=== PATIENT | female | born 1970 | race Caucasian/White ===

== ENCOUNTER 2016-09-18 15:47 | Inpatient (IN) | payer OTHER ==
[2016-09-18 18:17] LABS: Basophils % (Auto) 1.2 % (0.0-1.8); Eosinophils % (Auto) 1.9 % (0.0-4.3); Hematocrit 29.7 % (30.3-42.9); Hemoglobin 9.6 gm/dl (10.1-14.3); Mean Corpuscular HGB Conc 33 % (30-34); Mean Corpuscular Hemoglobin 27 pg (28-32); Mean Corpuscular Volume 84 fl (79-97); Platelet Count 262 K/mm3 (140-440); Red Blood Count 3.54 M/mm3 (3.65-5.03); Red Cell Distribution Width 15.8 % (13.2-15.2); White Blood Count 5.1 K/mm3 (4.5-11.0)
[2016-09-18 18:32] LABS: Anion Gap 20 mmol/L; Blood Urea Nitrogen 15 mg/dL (7-17); Calcium 8.8 mg/dL (8.4-10.2); Carbon Dioxide 21 mmol/L (22-30); Chloride 105.5 mmol/L (98-107); Glucose 98 mg/dL (65-100); Potassium 4.3 mmol/L (3.6-5.0); Sodium 142 mmol/L (137-145)
--- NOTE | 2016-09-18 18:53 | Cat Scan Report ---
FINAL REPORT EXAM: CT HEAD/BRAIN WO CON HISTORY: syncope TECHNIQUE: CT head without contrast PRIORS: None. FINDINGS: No acute intra-axial or extra-axial hemorrhage is identified. There is no evidence of midline shift or mass effect. The ventricles and sulci are within normal limits. Ghosh-white matter differentiation is intact. No acute parenchymal abnormalities seen. Bony calvarium is grossly intact. There is marked mucosal thickening within the right maxillary sinus. There is fluid level present within the left maxillary sinus. IMPRESSION: Sinusitis likely acute on chronic No acute intracranial findings.
--- NOTE | 2016-09-18 18:54 | XRay Report ---
FINAL REPORT EXAM: XR SHOULDER 2+V RT HISTORY: rt shoulder injury TECHNIQUE: Three views right shoulder PRIORS: None. FINDINGS: No fractures are identified. No dislocation seen. The acromioclavicular joint is intact. Adjacent bony and soft tissue structures are unremarkable. IMPRESSION: Negative shoulder series
[2016-09-18 21:10] LABS: Bilirubin,Urine NEG (Negative); Blood,Urine NEG (Negative); Ketones,Urine TR mg/dL (Negative); Leukocyte Esterase,Urine SM (Negative); Mucus,Urine FEW /HPF; Nitrite,Urine NEG (Negative); Urobilinogen,Urine < 2.0 mg/dL (<2.0)
[2016-09-19] MEDS ORDERED: ZOFRAN IV ONE (02:22)
[2016-09-19] MEDS ORDERED: MORPHINE IV ONE (02:22)
[2016-09-19] MEDS ORDERED: NITRO-BID 2% TP ONE (02:25)
[2016-09-19] MEDS ORDERED: ASPIRIN PO ONE (02:25)
--- NOTE | 2016-09-19 02:47 | Emergency Department Report ---
HPI - General Chief Complaint: Syncope Time Seen by Provider: 09/19/16 02:09 - [facility] HPI: Room 18 The patient is a 46-year-old female presenting with a chief complaint of chest pain and syncope. The patient states approximately 3 days ago while standing she had a syncopal episode. Patient states when she came to she felt slightly dizzy. She denied preceding palpitations or shortness of breath before the syncopal episode. Patient believes she injured her right shoulder after the fall. The patient admits last week she had intermittent substernal chest pain for 5 days. Patient states she still has chest pain that is described as sharp and substernal in nature. Patient does admit to occasional diaphoresis with the chest pain but denies nausea/vomiting or shortness of breath. Patient denies any recent flights or long car trips. Patient gives her shoulder pain a score of 6-8/10 and her chest pain currently a score of 4/10. The patient states she's never had a stress test or cardiac catheterization Location: [see above] Duration: [see above] Quality: Sharp Severity: [see above] Modifying factors: [see above] Context: [see above] Mode of transportation: [not driving] ED Past Medical Hx - Past Medical History Previous Medical History?: Yes Hx Headaches / Migraines: Yes Hx Seizures: Yes - Surgical History Past Surgical History?: No - Family History Family history: no significant - Social History Smoking Status: Never Smoker Substance Use Type: None ED Review of Systems ROS: Stated complaint: RT ARM PAIN Other details as noted in HPI Comment: All other systems reviewed and negative Constitutional: diaphoresis. denies: chills, fever Eyes: denies: eye pain, eye discharge, vision change ENT: denies: ear pain, throat pain Respiratory: denies: cough, shortness of breath, wheezing Cardiovascular: chest pain. denies: palpitations Endocrine: no symptoms reported Gastrointestinal: denies: abdominal pain, nausea, diarrhea Genitourinary: denies: urgency, dysuria, discharge Musculoskeletal: myalgia Skin: denies: rash, lesions Neurological: other (syncope) Psychiatric: denies: anxiety, depression Hematological/Lymphatic: denies: easy bleeding, easy bruising Physical Exam - Physical Exam Vital Signs: Vital Signs 09/18/16 17:18 Temperature 98.2 F Pulse Rate 87 Respiratory 16 Rate Blood Pressure 115/79 O2 Sat by Pulse 100 Oximetry Physical Exam: GENERAL: The patient is well-developed well-nourished female lying on stretcher not appearing to be in acute distress. [] HEENT: Normocephalic. Atraumatic. Extraocular motions are intact. Patient has moist mucous membranes. NECK: Supple. Trachea midline CHEST/LUNGS: Clear to auscultation. There is no respiratory distress noted. HEART/CARDIOVASCULAR: Regular. There is no tachycardia. There is no gallop rub or murmur. ABDOMEN: Abdomen is soft, nontender. Patient has normal bowel sounds. There is no abdominal distention. SKIN: There is no rash. There is no edema. There is no diaphoresis. NEURO: The patient is awake, alert, and oriented. The patient is cooperative. The patient has no focal neurologic deficits. The patient has normal speech. Cranial nerves II through XII grossly intact MUSCULOSKELETAL: There is tenderness to palpation of the right shoulder. There is decreased range of motion of the right shoulder secondary to pain. There is no obvious deformity of the right shoulder ED Course Vital Signs 09/18/16 17:18 Temperature 98.2 F Pulse Rate 87 Respiratory 16 Rate Blood Pressure 115/79 O2 Sat by Pulse 100 Oximetry ED Medical Decision Making - Lab Data Result diagrams: 09/18/16 17:59 09/18/16 17:59 Laboratory Tests 09/18/16 09/18/16 09/18/16 17:59 17:59 20:09 WBC 5.1 RBC 3.54 L Hgb 9.6 L Hct 29.7 L MCV 84 MCH 27 L MCHC 33 RDW 15.8 H Plt Count 262 Lymph % (Auto) 30.7 Ross % (Auto) 10.4 H Eos % (Auto) 1.9 Baso % (Auto) 1.2 Lymph # 1.6 Ross # 0.5 Eos # 0.1 Baso # 0.1 Seg Neutrophils % 55.8 Seg Neutrophils # 2.9 D-Dimer Sodium 142 Potassium 4.3 Chloride 105.5 Carbon Dioxide 21 L Anion Gap 20 BUN 15 Creatinine 0.6 L Estimated GFR > 60 BUN/Creatinine Ratio 25.00 Glucose 98 Calcium 8.8 Troponin T < 0.010 < 0.010 Urine Color Urine Turbidity Urine pH Ur Specific [place] Urine Protein Urine Glucose (UA) Urine Ketones Urine Blood Urine Nitrite Urine Bilirubin Urine Urobilinogen Ur Leukocyte Esterase Urine WBC (Auto) Urine RBC (Auto) U Epithel Cells (Auto) Amorphous Crystals Urine Mucus 09/18/16 09/18/16 09/19/16 20:15 23:30 02:51 WBC RBC Hgb Hct MCV MCH MCHC RDW Plt Count Lymph % (Auto) Ross % (Auto) Eos % (Auto) Baso % (Auto) Lymph # Ross # Eos # Baso # Seg Neutrophils % Seg Neutrophils # D-Dimer 172.88 Sodium Potassium Chloride Carbon Dioxide Anion Gap BUN Creatinine Estimated GFR BUN/Creatinine Ratio Glucose Calcium Troponin T < 0.010 Urine Color Yellow Urine Turbidity Cloudy Urine pH 6.0 Ur Specific [place] 1.029 Urine Protein 30 mg/dl Urine Glucose (UA) Neg Urine Ketones Tr Urine Blood Neg Urine Nitrite Neg Urine Bilirubin Neg Urine Urobilinogen < 2.0 Ur Leukocyte Esterase Sm Urine WBC (Auto) 12.0 H Urine RBC (Auto) 3.0 U Epithel Cells (Auto) 2.0 Amorphous Crystals 1+ Urine Mucus Few - EKG Data -: EKG Interpreted by Me EKG shows normal: sinus rhythm Rate: normal - EKG Data When compared to previous EKG there are: previous EKG unavailable Interpretation: other (no ischemic changes seen) - Radiology Data Radiology results: report reviewed (CT head), image reviewed (CT head, right shoulder x-ray, chest x-ray) interpreted by me: Right shoulder x-ray-no acute fracture Chest x-ray-no focal infiltrates, no pneumothorax CT head (read by radiologist)-no acute intracranial findings - Differential Diagnosis ACS, PE, syncope, clavicle fracture, AC separation Critical care attestation.: If time is entered above; I have spent that time in minutes in the direct care of this critically ill patient, excluding procedure time. ED Disposition Clinical Impression: Chest pain, Syncope Disposition: -09 OP ADMIT IP TO THIS HOSP Is pt being admited?: Yes Does the pt Need Aspirin: Yes Condition: Fair Instructions: Chest Pain (ED), Syncope (ED) Referrals: PRIMARY CARE, [Primary Care Provider] - 3-5 Days Time of Disposition: 03:22 (hospitalist notified)
[2016-09-19] MEDS ORDERED: TYLENOL PO PRN (04:04)
[2016-09-19] MEDS ORDERED: MORPHINE IV PRN (04:04)
[2016-09-19] MEDS ORDERED: MILK OF MAGNESIA PO PRN (04:04)
[2016-09-19] MEDS ORDERED: DULCOLAX PR PRN (04:04)
[2016-09-19] MEDS ORDERED: ZOFRAN IV PRN (04:04)
--- NOTE | 2016-09-19 04:04 | History and Physical Report ---
History of Present Illness Date of examination: 09/19/16 History of present illness: 46-year-old woman history of seizure comes emergency room with complaints of chest pain in the epigastric area which she describes as a sharp pain, started last week, constant, intensity 5/10, no radiation, she cannot identify exacerbating or relieving factors. Complaining of right shoulder pain, had a syncopal episode, no nausea vomiting, shortness breath, diaphoresis or palpitation Review of systems Constitutional: no fever, no chills, no weight loss Ears, eyes, nose, mouth and throat: no nasal congestion, no nasal discharge, no sinus pressure, no vision change, no red eye. Neck: No neck pain or rigidity. Cardiovascular: no orthopnea, no palpitations, no leg swelling Respiratory: No shortness of breath, no cough, no congestion, no wheezing Gastrointestinal: abdominal pain, hematochezia, no nausea, no vomiting Genitourinary : no dysuria, frequency , no hematuria Musculoskeletal: no joint swelling or muscle ache Integumentary: no rash, no pruritis Neurological: no parathesias, no numbness, no focal weakness Endocrine: no cold or heat intolerance, no polyuria or polydipsia Hematologic/Lymphatic: no easy bruising, no easy bleeding, no gland swelling Allergic/Immunologic: no urticaria, no angioedema. PAST MEDICAL HISTORY: Seizure PAST SURGICAL HISTORY: None FAMILY HISTORY: Hypertension SOCIAL HISTORY:Denies alcohol, tobacco, drugs Medications and Allergies Allergies Allergy/AdvReac Type Severity Reaction Status Date / Time No Known Allergies Allergy Verified 09/18/16 17:18 Exam - Physical Exam Narrative exam: Gen. appearance: Patient lying in bed, no apparent distress HEENT: Normocephalic, atraumatic, pupils equally round and reactive to light, extraocular movement intact, and no sclericterus,. No JVD or thyromegaly or nodule,neck supple, no carotid bruit ,mucous membranes moist, no exudate or erythema Heart: S1, S2, regular rate and rhythm Lungs: Clear to auscultation bilaterally, breathing comfortable Abdomen: Positive bowel sounds, nontender, nondistended, no organomegaly Extremity: No edema, cyanosis, clubbing Skin: No rash, nodules, warm, dry Neuro: Oriented 3, cranial nerves II-12 intact, speech is fluent, motor and sensory intact - Constitutional Vitals: Temp Pulse Resp BP Pulse Ox 98.2 F 80 16 105/62 99 09/18/16 17:18 09/19/16 02:25 09/19/16 02:25 09/19/16 02:25 09/19/16 02:25 Results - Labs CBC & Chem 7: 09/18/16 17:59 09/18/16 17:59 Labs: Abnormal lab results 09/18/16 09/18/16 09/18/16 Range/Units 17:59 17:59 20:15 RBC 3.54 L (3.65-5.03) M/mm3 Hgb 9.6 L (10.1-14.3) gm/dl Hct 29.7 L (30.3-42.9) % MCH 27 L (28-32) pg RDW 15.8 H (13.2-15.2) % [place] % (Auto) 10.4 H (0.0-7.3) % Carbon Dioxide 21 L (22-30) mmol/L Creatinine 0.6 L (0.7-1.2) mg/dL Urine WBC (Auto) 12.0 H (0.0-6.0) /HPF - Imaging and Cardiology EKG: image reviewed Chest x-ray: image reviewed Assessment and Plan Assessment Chest pain, rule out ACS Seizure Plan Admit to medicine Check cardiac enzymes, stress tests, lipid profile Start aspirin, morphine Continue appropriate outpatient medication, start DVT prophylaxis
[2016-09-19 06:14] LABS: Creatine Kinase 136 units/L (30-135)
[2016-09-19 09:40] LABS: Creatine Kinase 126 units/L (30-135)
--- NOTE | 2016-09-19 09:54 | XRay Report ---
AP CHEST: HISTORY: chest pain AP view of the chest demonstrates a normal mediastinal and cardiac contour with clear lungs and normal bony and soft tissue structures. IMPRESSION: Unremarkable AP chest.
[2016-09-19] MEDS ORDERED: ASPIRIN PO SCH (10:00)
[2016-09-19] MEDS ORDERED: LOVENOX SUB-Q SCH (10:00)
[2016-09-19 13:26] VITALS: BP 96/53
--- NOTE | 2016-09-19 15:36 | Discharge Summary ---
Providers - Providers Date of Admission: 09/19/16 04:04 Date of discharge: 09/19/16 Attending physician: INDIRA CLARK Primary care physician: KRISTY SAVAGE MD Hospitalization Condition: Fair Procedures: TST Negative Hospital course: See Dis summary in reports Disposition: DC-Shawn TO HOME OR SELFCARE Time spent for discharge: 20 minutes Core Measure Documentation - Palliative Care Palliative Care/ Comfort Measures: Not Applicable - Core Measures Any of the following diagnoses?: none Exam - Constitutional Vitals: Temp Pulse Resp BP Pulse Ox 97.7 F 87 18 96/53 98 09/19/16 13:24 09/19/16 13:24 09/19/16 13:24 09/19/16 13:24 09/19/16 13:24 General appearance: Present: no acute distress, well-nourished - EENT Eyes: Present: PERRL ENT: hearing intact, clear oral mucosa - Neck Neck: Present: supple, normal ROM - Respiratory Respiratory effort: normal Respiratory: bilateral: CTA - Cardiovascular Heart Sounds: Present: S1 & S2. Absent: rub, click - Extremities Extremities: pulses symmetrical, No edema Peripheral Pulses: within normal limits - Abdominal General gastrointestinal: Present: soft, non-tender, non-distended, normal bowel sounds Female genitourinary: Present: normal - Integumentary Integumentary: Present: clear, warm, dry - Musculoskeletal Musculoskeletal: gait normal, strength equal bilaterally - Psychiatric Psychiatric: appropriate mood/affect, intact judgment & insight - Neurologic Neurologic: CNII-XII intact, moves all extremities Plan Activity: no restrictions Diet: regular Follow up with: PRIMARY CAREMD [Primary Care Provider] - 3-5 Days
--- NOTE | 2016-09-20 02:10 | Discharge Summary ---
HOSPITAL COURSE: The patient is a 46-year-old female admitted with chest pain in retrosternal and epigastric region. Also, has a history of seizures. Intensity was 5/10. Also, complaining of right shoulder pain and syncopal episode. No nausea, no vomiting, no shortness of breath, no diaphoresis. PAST MEDICAL HISTORY: Significant for seizures. CURRENT MEDICATIONS: No seizure medications. HOSPITAL COURSE: The patient's EKG was normal sinus rhythm, heart rate of 70 per minute, normal sinus rhythm, no acute ischemic changes. CT head was negative. The right shoulder and chest x-ray was normal. No acute changes. The patient was admitted for chest pain and syncope. Cardiac enzymes were negative. Four troponins and all were negative. Two CK-MBs and CKs were also negative. Urine showed white blood cells of 12. Her blood pressure was normal, 96/53 and 99/60. There was tenderness in the right shoulder. The patient had an exercise stress test on the morning of 09/19/2016, which was negative. No ischemic changes on exercise. Tolerated the stress test well. DISCHARGE DIAGNOSES: 1. Chest pain, nonspecific. Ischemic cause ruled out. 2. Right shoulder pain, NSAIDs as necessary. 3. Seizure disorder. The patient is not on any medication and the patient did not have any seizures recently for the last 2-3 years. The patient to follow up with PCP regarding the decision to start antiepileptic medications. This patient is being discharged home with followup with PCP. JOB# [id number] MAYTE/KAY
== END 2016-09-19 17:05 | disposition home or self-care (01) | DRG 313 ==
LOC: ED 15:47 → 4A 09-19 04:04
PROVIDERS: ADMIT Internal Medicine; ATTEND Internal Medicine
DX: R07.9 Chest pain, unspecified (principal); G43.909 Migraine, unspecified, not intractable, without status migrainosus; Z82.49 Family history of ischemic heart disease and other diseases of the circulatory system; Z79.1 Long term (current) use of non-steroidal anti-inflammatories (NSAID); G40.909 Epilepsy, unspecified, not intractable, without status epilepticus
CPT/HCPCS: 36415; 70450; 71010; 80048; 81001; 82550; 82553; 84484; 85025; 85379; 87086; 93005; 93010; 93017; 96374; 96375; J1650; J2270; J2405

== ENCOUNTER 2020-04-30 08:54 | Outpatient (CLI) | payer OTHER | END 2020-04-30 08:55 | disposition home or self-care (01) | LOC: SPVWC 08:54 | PROVIDERS: ATTEND Family Medicine | DX: Z12.31 Encounter for screening mammogram for malignant neoplasm of breast (principal) | CPT/HCPCS: 77067 ==

== ENCOUNTER 2020-07-10 09:14 | Outpatient (CLI) | payer OTHER ==
--- NOTE | 2020-07-10 10:13 | Ultrasound Report ---
ULTRASOUND BREAST BILATERAL LIMITED, 07/10/2020 CLINICAL INFORMATION / INDICATION: ABNORMAL MAMMOGRAM OF BOTH BREASTS. Patient presents as a callback from screening mammogram for further evaluation of nodular densities in both breasts. TECHNIQUE: Targeted ultrasound evaluation was performed of the area of interest. COMPARISON: Prior mammogram 04/30/2020 FINDINGS: Right breast: Corresponding with the nodular density seen on prior mammogram, there is a benign cyst in the right breast 1:00 position located 5 cm from the nipple measuring up to 10 mm. No suspicious s olid lesion identified. There are several mildly prominent right axillary lymph nodes, though the pat ient reports recent Covid vaccination in the right arm. Left breast: Corresponding with the nodular density seen on recent mammogram, there is a bilobed cyst in the 12:00 position located 4 cm from the nipple measuring up to 1.8 cm. An incidental benign focu s of fibrocystic change is seen in the 1:00 position located 3 cm from the nipple measuring up to 7 m m. No suspicious solid lesion identified. IMPRESSION: 1. Benign cysts account for the recent mammographic finding. No suspicious sonographic abnormality id entified. 2. Mildly prominent right axillary lymph nodes are most likely reactive to recent Covid vaccination. Follow up recommendation: Back to schedule. BI-RADS Category 2: Benign. A normal or "negative" report should not preclude biopsy or follow-up of a clinically suspicious find ing. Signer Name: Jacklyn Asher MD Signed: 07/10/2020 10:08 AM Workstation Name: [employer]
== END 2020-07-10 09:15 | disposition home or self-care (01) ==
LOC: SPVWC 09:14
PROVIDERS: ATTEND Family Medicine
DX: N60.01 Solitary cyst of right breast (principal); N60.02 Solitary cyst of left breast

== ENCOUNTER 2021-05-12 09:16 | Outpatient (CLI) | payer OTHER ==
--- NOTE | 2021-05-12 12:34 | Mammography Report ---
BILATERAL DIGITAL DIAGNOSTIC MAMMOGRAM WITH CAD CONVENTIONAL, 05/12/2021 LEFT LIMITED BREAST ULTRASOUND CLINICAL INFORMATION / INDICATION: Left cyclical pain and palpable abnormality TECHNIQUE: Digital bilateral mammographic imaging was performed. Spot compression views were obtained . Limited ultrasound was performed. This examination was interpreted with the benefit of Computer-Aid ed Detection (CAD) analysis. COMPARISON: Mammogram 04/30/2020 FINDINGS: Breast Density: The breasts are heterogeneously dense, which may obscure small masses. MAMMOGRAPHIC FINDINGS: Previous bilateral nodularity has resolved. No suspicious lesions are seen, in cluding the marked area of comparable concern on the left. ULTRASOUND FINDINGS: Targeted ultrasound evaluation was performed of the area of interest. Multiple s mall benign simple cysts are seen in the area of palpable concern measuring up to 12 mm. No suspiciou s lesions are seen. IMPRESSION: Only benign cystic change is seen in the area of reported pain and palpable concern. Follow up recommendation: Clinical follow-up BI-RADS Category 2: BENIGN. A "normal" or negative report should not discourage follow up or biopsy of a clinically significant f inding. A written summary of these findings will be mailed to the patient. The patient will be entered into a mammography reporting system which will generate a reminder letter for the patient's next appointmen t at the appropriate interval. According to the [employer], yearly mammograms are recommended starting at age 40 and continuing as long as a woman is in good health. Breast MRI is recommended for women with an debbie roximately 20-25% or greater lifetime risk of breast cancer, including women with a strong family his tory of breast or ovarian cancer and women who have been treated for Hodgkin's disease. Signer Name: Lenin Malone MD Signed: 05/12/2021 12:30 PM Workstation Name: [id number]
== END 2021-05-12 09:17 | disposition home or self-care (01) ==
LOC: SPVWC 09:16
PROVIDERS: ATTEND Family Medicine
DX: N60.02 Solitary cyst of left breast (principal); N63.20 Unspecified lump in the left breast, unspecified quadrant
CPT/HCPCS: 77066